=== PATIENT | female | born 1970 | race Caucasian/White ===

== ENCOUNTER 2017-08-06 21:01 | Emergency (ER) | payer SELFPAY ==
[~2017-08-06] VITALS: Ht 160 cm; Wt 55.2 kg
[2017-08-06] MEDS ORDERED: AMOXICILLIN500 MG PO (21:43)
[2017-08-06 21:46] VITALS: BP 125/87
== END 2017-08-06 21:50 | disposition left against medical advice (07) | DRG 159 ==
LOC: ED 21:01
DX: K08.89 Other specified disorders of teeth and supporting structures (principal); R51 Headache; Z91.19 Patient's noncompliance with other medical treatment and regimen